=== PATIENT | female | born 1960 | race Caucasian/White ===

== ENCOUNTER 2023-06-11 11:45 | Emergency (ER) | payer OTHER, SELFPAY ==
[2023-06-11 11:53] VITALS: BP 114/71; PULSE 69; RESP 18; TEMP 36.4; O2SAT 98; BMI 22.9
--- NOTE | 2023-06-11 12:34 | ED_ITS ---
HPI - General Adult General Chief complaint: Abdominal Pain Stated complaint: Left side pain Time Seen by Provider: 06/11/23 12:22 History of Present Illness HPI narrative: eft sided abd pain x 2 weeks. getting worse .denies vomiting, diarrhea no fevers. visiting from [place] 62-year-old woman presenting to the emergency department with complaint of sharp pain in left upper abdomen. She does have a history of esophageal dilatation and GERD and takes daily omeprazole. This is different. She has been having some small dysuria and urinary frequency. This pain is sharp. She is not having any cough or cold symptoms. No diarrhea. No fever. No rashes. It radiates around her back. Is been present now about 2 weeks and with further questioning appears may have started after she tried to lift a large potted plant. She does not have a history of kidney stones. Has been treating with acetaminophen with minimal relief and daughter gave her a muscle relaxer just to help her sleep I think. Icing helps. Related Data Home Medications Medication Instructions Recorded Confirmed Humalog U-100 Insulin 06/11/23 Zocor 06/11/23 glipizide 06/11/23 metformin 06/11/23 omeprazole 06/11/23 paroxetine HCl 06/11/23 Allergies Allergy/AdvReac Type Severity Reaction Status Date / Time No Known Drug Allergies Allergy Verified 06/11/23 11:57 Review of Systems Status of ROS: Reports: 6 or more systems reviewed and unremarkable except as noted in History and below [facility] Social History Smoking Status: Never smoker Do you use any of these nicotine containing products: None How often do you have a drink containing alcohol: never AUDIT-C Alcohol total score: 0 Non-prescribed substance use: denies use Exam Narrative: Exam Narrative: Pleasant. Lying in bed. Splinting just a little bit. Lungs appear to be clear. She has her gown pulled up to just expose the underside of her left breast. There is no erythema here. Even very light touch to this area over the left lower ribs mid clavicular line causes her to cry out in pain. With a little distraction she does not actually have pain to palpation in her abdomen. She has tympanitic in the left upper abdomen. Does not clearly have flank pain either. Heart in a regular rate and rhythm. Distant. Abdomen with normal bowel sounds otherwise. Const: Vital Signs, click to edit/add: Vital Signs - 24 hr 06/11/23 11:53 Temperature 97.6 F Pulse Rate [Right Pulse Oximeter] 69 Respiratory Rate 18 Blood Pressure [Ri ght Upper Arm] 114/71 Pulse Oximetry 98 Oxygen Delivery Me thod Room Air Documenting provider has reviewed patient's vital signs: yes Course Vital Signs Vital signs: Initial Vital Signs Temperature 97.6 F 06/11/23 11:53 Temperature Source Temporal Artery Scan 06/11/23 11:53 Pulse Rate 69 06/11/23 11:53 Respiratory Rate 18 06/11/23 11:53 Blood Pressure 114/71 06/11/23 11:53 Blood Pressure Mean 85 06/11/23 11:53 Blood Pressure Position Sitting 06/11/23 11:53 Pulse Oximetry 98 06/11/23 11:53 Oxygen Delivery Method Room Air 06/11/23 11:53 Vital Signs Temperature 97.6 F 06/11/23 11:53 Pulse Rate 69 06/11/23 11:53 Respiratory Rate 18 06/11/23 11:53 Blood Pressure 114/71 06/11/23 11:53 Pulse Oximetry 98 06/11/23 11:53 Oxygen Delivery Method Room Air 06/11/23 11:53 Temperature 97.6 F 06/11/23 11:53 Pulse Rate 69 06/11/23 18:00 Respiratory Rate 16 06/11/23 18:00 Blood Pressure 114/69 06/11/23 18:00 Pulse Oximetry 97 06/11/23 18:00 Oxygen Delivery Method Room Air 06/11/23 18:00 Medical Decision Making MDM Narrative Medical decision making narrative: She may have bruised this area of her ribs or strain some intercostal muscles. Reassured that even light touch though causes pain in this area. She denies a history of back problems. Does maybe have some symptoms of UTI but the reproducibility of the primary pain suggests musculoskeletal. Will get urinalysis. Place Lidoderm patch further pain medication as necessary. Also do an x-ray of the left side ribs I do review images. X-rays noted to have some excessive calcification radiology confirms old healed left-sided 3rd and 4th rib fractures. Pain reportedly not well managed. After discussion we settle on a couple tabs of [place]. And with reassessment is clearly more comfortable. Transitioning without significant difficulty. Labs are overall unremarkable. I highly doubt there is any acute intra- abdominal process. I think there is still some concern on their part of a potential herniation. They note that the abdomen is more swollen. I can appreciate some of this though again not really tender in this area. They would like to proceed with further imaging for more certain diagnosis other than the chest wall pain that I believe is the issue here today. Therefore CT scan is ordered On my review appreciate postoperative changes and a somewhat full stomach. Radiology over-read as below CT ABDOMEN WITHOUT CONTRAST TECHNIQUE: Multidetector CT imaging was performed through the upper abdomen from the lung bases to the iliac crests without intravenous contrast administration. Coronal and sagittal reconstructions were generated. COMPARISON: None. FINDINGS: Lower chest: Lung bases are clear aside from minimal basilar atelectasis or scarring. Liver: Within normal limits. Gallbladder and bile ducts: Largely contracted gallbladder. No gallbladder wall thickening or calcified gallstones. No biliary dilation identified. Pancreas: Unremarkable. Spleen: Normal. Adrenals: No nodules or masses. Kidneys: No intrarenal stones identified. No bladder mass or definite wall thickening. Gastrointestinal tract: Surgical mesh about the esophagogastric junction, apparently for hiatal hernia repair. Normal caliber bowel without wall thickening or obvious obstruction. Vascular structures: Normal caliber abdominal aorta with moderate atherosclerotic calcifications. Peritoneum: No free air, abscess, or significant free fluid. Lymph nodes: No pathologically enlarged nodes identified. Bones: Normal for age. IMPRESSION: 1. No acute abnormality identified. No cause for the patient`s symptoms is demonstrated. 2. Postoperative changes at the esophagogastric junction, as noted. I review the results with Sheri and her daughter. We also spent further time discussing diabetes management/diet. See patient discharge plan Lab Data Lab results reviewed: Yes I reviewed the patient's lab results Labs: Lab Results 06/11/23 06/11/23 Range/Units 12:50 16:20 WBC 9.23 (4.50-11.00) K/uL RBC 4.31 (4.00-5.20) m/uL Hgb 10.3 L (12.0-16.0) gm/dL Hct 33.6 (33.0-51.0) % MCV 78 L (80-100) fL MCH 24 L (26-34) pg MCHC 31 L (32-36) gm/dL RDW Coeff of Vik 15.8 H (11.5-15.5) % Plt Count 424 (140-440) K/uL Neut % (Auto) 55.8 (42.0-72.0) % Lymph % (Auto) 32.6 (20-44) % [place] % (Auto) 5.7 (0.0-11.0) % Eos % (Auto) 4.9 (0.0-7.0) % Baso % (Auto) 0.9 (0.0-3.0) % Neut # (Auto) 5.15 (1.7-7.0) K/uL Lymph # (Auto) 3.01 H (0.90-2.90) K/uL [place] # (Auto) 0.50 (0.00-0.90) K/UL Eos # (Auto) 0.45 (0.00-0.50) K/uL Baso # (Auto) 0.08 (0.00-0.30) K/uL Abs Immat Gran (auto) 0.01 (0.00-0.30) K/uL Imm/Tot Granulo (auto) 0.1 % Sodium 135 (135-149) mmol/L Potassium 4.2 (3.6-5.1) mmol/L Chloride 104 (96-114) mmol/L Carbon Dioxide 23 (20-32) mmol/L BUN 16 (7-30) mg/dL Creatinine 0.5 (0.5-1.5) mg/dL Estimated Creat Clear 94.63 Estimated GFR 107 ml/min Glucose 279 H (60-115) mg/dL Calcium 8.8 (8.4-10.6) mg/dL Total Bilirubin < 0.1 L (0.1-1.5) mg/dL Direct Bilirubin 0.0 (0.0-0.5) mg/dL AST 24 (12-35) U/L ALT 25 (4-35) U/L Alkaline Phosphatase 99 (40-150) U/L C-Reactive Protein 0.7 (0.5-1.0) mg/dL Total Protein 6.5 (6.0-8.3) g/dL Albumin 3.7 (3.3-5.0) g/dL Lipase 122 (23-300) U/L Urine Color Yellow (Yellow) Urine Appearance Clear (Clear) Urine pH 5.5 (5.0-8.5) Ur Specific [place] 1.025 (1.000-1.030) Urine Protein Negative (Negative) Urine Glucose (UA) 2+ A (Negative) Urine Ketones 1+ A (Negative) Urine Blood Negative (Negative) Urine Nitrite Negative (Negative) Urine Bilirubin Negative (Negative) Urine Urobilinogen 0.2 (0.2-1.0) Ur Leukocyte Esterase Negative (Negative) Urine RBC 0-2 (0-2) Urine WBC 0-2 (0-5) Ur Squamous Epith Cells Moderate A (None-Few) Urine Bacteria None (None) Discharge Plan Discharge Clinical Impression: Chest wall pain Patient Disposition: Home w/ Parent or Adult Condition: Improved Instructions: Chest Wall Pain (ED) Additional Instructions: It would be easier if you could take a medicine like ibuprofen or naproxen regularly over the next 4 - 5 days but I understand that you have been told not to. I would continue to apply ice packs to this area that hurts 2-3 times daily over the next few days. Can use lidocaine patches as well; these are available [id number]. Could also try some analgesic creams. I have prescribed some [place] for you from [employer]. Try to get in some heart pumping exercise daily to help with your blood sugar control. Continue to be careful with your diet. Prescriptions: No Action metformin glipizide Zocor omeprazole paroxetine HCl Humalog U-100 Insulin Follow Up/Referrals: Melvin Zhao MD [Primary Care Provider] - Stand Alone Forms: [employer] Info Instructions
--- NOTE | 2023-06-11 12:50 | CRLHL7_ITS ---
For Patients: As a result of the Cures Act, medical imaging exams and procedure reports are released immediately into your electronic medical record. You may view this report before your referring provider. If you have questions, please contact your health care provider. INDICATION: Left lower anterior rib pain. COMPARISON: None. TECHNIQUE: Upright PA view of the chest in 2 views of the left ribs were obtained. FINDINGS: The cardiomediastinal silhouette and pulmonary vasculature are within normal limits. The lungs are clear. No pleural effusion or pneumothorax is identified. There are minimal angular deformities of the lateral aspects of the left 3rd and 4th ribs seen on image series 3 which are suspicious for old healed rib fractures. Acute nondisplaced rib fracture deformities are not completely excluded and clinical correlation with location of patient`s pain is needed. Bones are otherwise unremarkable. Impression : 1. Minimal angular deformities of the lateral aspect of the left 3rd and 4th ribs, likely old healed rib fractures. Acute nondisplaced rib fracture deformities are not completely excluded however and close clinical correlation with location of patient`s pain is needed. 2. No acute cardiopulmonary process. Dictated by Carl Ngo MD @ 06/11/2023 2:16:39 PM (Electronically Signed)
[2023-06-11] MEDS: HYDROCODONE-ACETAMIN 5-325 MG 1 TAB 2 TAB PO (13:03)
[2023-06-11 14:10] VITALS: BP 124/72; PULSE 88; RESP 18; O2SAT 97
[2023-06-11 14:18] LABS: Appearance Urine Clear (Clear); Bilirubin Urine Negative (Negative); Blood Urine Negative (Negative); Color Urine Yellow (Yellow); Glucose Urine 2+ (Negative); Ketones Urine 1+ (Negative); Leukocyte Esterase Urine Negative (Negative); Nitrite Urine Negative (Negative); Protein Urine Negative (Negative); Specific Gravity Urine 1.025 (1.000-1.030); Urobilinogen Urine 0.2 (0.2-1.0); pH Urine 5.5 (5.0-8.5)
[2023-06-11 14:35] LABS: RBC Urine 0-2 (0-2); Squamous Epithelial Cell Urine Moderate (None-Few); WBC Urine 0-2 (0-5)
--- NOTE | 2023-06-11 15:03 | CRLHL7_ITS ---
For Patients: As a result of the Century Cures Act, medical imaging exams and procedure reports are released immediately into your electronic medical record. You may view this report before your referring provider. If you have questions, please contact your health care provider. INDICATION: 2 weeks left low anterior chest/left upper quadrant abdomen pain. CT ABDOMEN WITHOUT CONTRAST TECHNIQUE: Multidetector CT imaging was performed through the upper abdomen from the lung bases to the iliac crests without intravenous contrast administration. Coronal and sagittal reconstructions were generated. COMPARISON: None. FINDINGS: Lower chest: Lung bases are clear aside from minimal basilar atelectasis or scarring. Liver: Within normal limits. Gallbladder and bile ducts: Largely contracted gallbladder. No gallbladder wall thickening or calcified gallstones. No biliary dilation identified. Pancreas: Unremarkable. Spleen: Normal. Adrenals: No nodules or masses. Kidneys: No intrarenal stones identified. No bladder mass or definite wall thickening. Gastrointestinal tract: Surgical mesh about the esophagogastric junction, apparently for hiatal hernia repair. Normal caliber bowel without wall thickening or obvious obstruction. Vascular structures: Normal caliber abdominal aorta with moderate atherosclerotic calcifications. Peritoneum: No free air, abscess, or significant free fluid. Lymph nodes: No pathologically enlarged nodes identified. Bones: Normal for age. IMPRESSION: 1. No acute abnormality identified. No cause for the patient`s symptoms is demonstrated. 2. Postoperative changes at the esophagogastric junction, as noted. DAVID ANTHONY MD [facility] Dictated by Nicho Anthony MD @ 06/11/2023 4:19:39 PM Please note that all CT scans at this facility use dose modulation, iterative reconstruction, and/or weight-based dosing when appropriate to reduce radiation dose to as low as reasonably achievable. Dictated by: Nicho Anthony MD @ 06/11/2023 16:20:14 (Electronically Signed)
[2023-06-11 16:10] VITALS: BP 112/66; PULSE 64; RESP 16; O2SAT 98
[2023-06-11 16:35] LABS: Basophils Absolute Auto 0.08 K/uL (0.00-0.30); Basophils Percent Auto 0.9 % (0.0-3.0); Eosinophils Absolute Auto 0.45 K/uL (0.00-0.50); Eosinophils Percent Auto 4.9 % (0.0-7.0); Hematocrit 33.6 % (33.0-51.0); Hemoglobin* 10.3 gm/dL (12.0-16.0); Immature Granulocytes Abs Auto 0.01 K/uL (0.00-0.30); Immature Granulocytes Pct Auto 0.1 %; Lymphocytes Absolute Auto 3.01 K/uL (0.90-2.90); Lymphocytes Percent Auto 32.6 % (20-44); Mean Corpuscular HGB Conc 31 gm/dL (32-36); Mean Corpuscular Hemoglobin 24 pg (26-34); Mean Corpuscular Volume 78 fL (80-100); Monocytes Percent Auto 5.7 % (0.0-11.0); Neutrophils Absolute Auto 5.15 K/uL (1.7-7.0); Neutrophils Percent Auto 55.8 % (42.0-72.0); Platelet Count* 424 K/uL (140-440); RDW Coefficient of Variation % 15.8 % (11.5-15.5); Red Blood Count 4.31 m/uL (4.00-5.20); White Blood Count* 9.23 K/uL (4.50-11.00)
[2023-06-11 16:38] LABS: Slide Review Reflex No
[2023-06-11 16:48] LABS: Albumin* 3.7 g/dL (3.3-5.0); Chloride* 104 mmol/L (96-114)
[2023-06-11 16:49] LABS: Potassium* 4.2 mmol/L (3.6-5.1); Sodium* 135 mmol/L (135-149)
[2023-06-11 16:51] LABS: Alkaline Phosphatase* 99 U/L (40-150); Aspartate Amino Transferase* 24 U/L (12-35); Carbon Dioxide* 23 mmol/L (20-32); Creatinine* 0.5 mg/dL (0.5-1.5); Est. Creatinine Clearance* 94.63; Estimated Glomerular Filt Rate 107 ml/min; Total Protein* 6.5 g/dL (6.0-8.3)
[2023-06-11 16:52] LABS: Alanine Aminotransferase* 25 U/L (4-35); Blood Urea Nitrogen* 16 mg/dL (7-30); Calcium* 8.8 mg/dL (8.4-10.6); Glucose* 279 mg/dL (60-115); Lipase* 122 U/L (23-300)
[2023-06-11 16:54] LABS: C Reactive Protein* 0.7 mg/dL (0.5-1.0)
[2023-06-11 17:01] LABS: Bilirubin Total* < 0.1 mg/dL (0.1-1.5)
[2023-06-11 18:00] VITALS: BP 114/69; PULSE 69; RESP 16; O2SAT 97
--- NOTE | 2023-06-11 18:34 | ED.NURSE ---
Patient's daughter reported that she wanted medication filled through a pharmacy. [facility] was cancelled and paper rx was written. I then returned to lobby but patient's daughter had left telling registration she would return later. RX will be held at nursing station until she returns.
== END 2023-06-11 18:08 | disposition home or self-care (01) ==
PROVIDERS: Emergency Provider Family Medicine; PCP Internal Medicine
DX: R07.89 Other chest pain (principal)
CPT/HCPCS: 36415; 71101; 74150; 80048; 80076; 81001; 83690; 85025; 86140; 99284; 99285; A9270